=== PATIENT | female | born 2005 | race Caucasian/White ===

== ENCOUNTER → 2023-03-24 15:14 | Outpatient (CLI) | payer BC, SELFPAY ==
--- NOTE | ~2023-03-24 | US_ITS ---
EXAMINATION: US pelvic complete DATE: 03/24/2023 15:30 INDICATION: Irregular, heavy menstruation TECHNIQUE: Multiple transabdominal sonographic images of the pelvis were obtained. COMPARISON: None. FINDINGS: The uterus measures 8.9 x 3.8 x 5.2 cm. The endometrial complex measures 9 mm in thickness. The righ t ovary measures 4.5 x 1.9 x 2.6 cm. The left ovary measures 3.8 x 1.9 x 3.4 cm. Vascular flow identi fied in both ovaries on color Doppler. There is no free fluid in the pelvis. IMPRESSION: 1. Normal pelvic ultrasound. Reviewed, dictated and finalized at location A.
== END ==
PROVIDERS: PCP Nurse Practitioner; Visit Provider Nurse Practitioner
DX: N92.6 Irregular menstruation, unspecified (principal)
CPT/HCPCS: 76856

== ENCOUNTER 2025-05-02 08:11 | Emergency (ER) | payer BC, SELFPAY ==
--- OUTSIDE RECORDS SUMMARY | 2025-05-02 08:15 | XMS_ITS ---
Author Organization Unknown ENCOUNTERS Encounter Performer Location Date Diagnosis Diagnosis Status Outpatient [address] [place] [id number] *Note: Encounters from your own facility or health system may be excluded. Allergies, Adverse Reactions, Alerts Allergen Type Severity Identification Date Medications Name Date Quantity Days Supplied GPI Number
--- OUTSIDE RECORDS SUMMARY | 2025-05-02 08:15 | XMS_ITS | Continuity of Care Document ---
Author Organization [facility] Address [address] [place] [address] [address] [place] [address] Phone Care Team Providers Care Grocery Worker Name Role Phone Herrera OD, Nick Unavailable Unavailable Procedures Procedure Date Eye Exam & Treatment Refraction Eye Exam, New Patient Refraction Advance Directives Directive Yes / No Effective Date File Name No Information Encounters Encounter Description Practice Location Reason(s) For Visit Diagnoses Date Provider Providers Copied on Encounter [facility], [address] [place] [address] [address], [place], [place], [id number], tel:[phone] [facility] No Information 1-201 0 Herrera OD Nick. [address] [facility] , [address], [place], [place], [facility], [place]. tel:[phone] [facility], [address] [place] [address] [address], [place], [place], [id number], tel:[phone] [facility] No Information 1-200 9 Herrera OD Nick. [address] [facility] , [address], [place], [address], [place]. tel:[phone] Family History Family Member Type Diagnosis Age At Onset No Information Payers Payer name Insurance type Covered green party ID Authoriza tion(s) No Information Social History Type Description Quantity Date Captured Comments Sex Female Smoking Status No Information Chief Complaint And Reason For Visit No Information Reason For Referral Reason For Referral No Information History Of Present Illness Encounter Date Complaint History Of Prese nt Illness No Information Functional Status Date Functional Assessmen t No Information Instructions Date Instruction Additional Infor mation No Information Assessments Type Assessment Date No Information Patient Care Teams Name Effective Dates (start - stop) Status Members No Information
--- OUTSIDE RECORDS SUMMARY | 2025-05-02 08:17 | XMS_ITS | Continuity of Care Document ---
Author Organization [facility] Address [address] [place] [address] [address] [place] [address] Phone Care Team Providers Care Atmospheric Technician Name Role Phone Herrera OD, Nick Unavailable Unavailable Procedures Procedure Date Eye Exam & Treatment Refraction Eye Exam, New Patient Refraction Advance Directives Directive Yes / No Effective Date File Name No Information Encounters Encounter Description Practice Location Reason(s) For Visit Diagnoses Date Provider Providers Copied on Encounter [facility], [address] [place] [address] [address], [place], [place], [id number], tel:[phone] [facility] No Information 1-201 0 Herrera OD Nick. [address] [facility] , [address], [place], [place], [facility], [place]. tel:[phone] [facility], [address] [place] [address] [address], [place], [place], [id number], tel:[phone] [facility] No Information 1-200 9 Herrera OD Nick. [address] [facility] , [address], [place], [address], [place]. tel:[phone] Family History Family Member Type Diagnosis Age At Onset No Information Payers Payer name Insurance type Covered constitution party ID Authoriza tion(s) No Information Social [...]
[2025-05-02 08:23] VITALS: BP 136/67; PULSE 83; RESP 16; TEMP 36.6; O2SAT 99
--- NOTE | 2025-05-02 08:28 | ED.EAR ---
HPI - Ear Problem General Chief complaint: Ear Stated complaint: Left Ear Pain Time Seen by Provider: 05/02/25 08:29 Source: patient Mode of arrival: ambulatory Limitations: no limitations History of Present Illness HPI Narrative: 19 yo F presents with c/o pain to L ear for 2 days. Reports sinus congestion for 1 wk. Afebrile. All systems reviewed and negative except as noted above. Related Data Home Medications ?Medication ?Instructions ?Recorded ?Confirmed ?Last Taken ?Type levonorgestrel (Mirena) 1 device intrauterine ONCE 03/14/25 03/14/25 Unknown History Allergies Allergy/AdvReac Type Severity Reaction Status Date / Time No Known Allergies Allergy Verified 03/14/25 09:53 [facility] Past Medical History Medical History (Updated 05/02/25 @ 08:45 by Marcela Valentin NP) HSV-2 infection PCOS (polycystic ovarian syndrome) Constipation Acute hemorrhoid Surgical History Surgical History (Updated 03/14/25 @ 09:54 by Lawanda White CMA) H/O gynecological procedure Mirena IUD insertion Family History Family History (Updated 03/14/25 @ 09:54 by Lawanda White CMA) Mother Depression Grandparent Breast cancer Social History Social History (Updated 03/14/25 @ 09:55 by Lawanda White CMA) Smoking status: Never smoker Alcohol intake: current Substance use: never Substance use type: does not use Do You Feel Safe in your Home?: Yes Lack of Transportation: No Lack of Food: Never True Current Housing: I Have Housing Concerned About Future Housing: No Difficulty Paying Gas/Electric Bills: No Difficulty Paying for Meds: No Currently Unemployed: No Education: High School Diploma/GED Living arrangements: other Additional living arrangements comments: with finance Occupation/Education: occupation Gender identity (if verbalized by the patient): Female Sexual Orientation (if Verbalized by the Patient): Straight or Heterosexual Comments At time of signature, agree with nursing past medical, surgical, social and family history. There is no relevant family history pertinent to the presenting complaint. Exam Narrative: GENERAL: This is a well-nourished, well-developed patient, in no apparent distress. HEAD: normocephalic, atraumatic. EYES: PERRL. Sclera clear/white. Vision is grossly intact. EARS: External ears normal, auditory canals clear and without drainage, Erythema and bulging to left TM. Right TM normal. No perforation bilaterally. Hearing grossly intact. NOSE: External nose normal with Nasal congestion THROAT: Mucous membranes moist, posterior pharynx clear. NECK: Neck supple, non-tender without lymphadenopathy, masses or thyromegaly. CARDIOVASCULAR: Regular rate and rhythm without murmurs, gallops, or rubs. RESPIRATORY: Clear to auscultation. Breath sounds equal bilaterally. No wheezes, rales, or rhonchi. SKIN: warm, Dry, intact with no suspicious lesions or rash, good texture and turgor. NEURO: awake, alert, and oriented to person, place and time. There were no obvious focal neurologic abnormalities. EXTREMITIES: No joint tenderness, effusion, or edema noted. Course Course Level of Care: Express Care Visit Vital Signs Vital signs: Vital Signs Temperature 36.6 C 05/02/25 08:23 Pulse Rate 83 05/02/25 08:23 Respiratory Rate 16 05/02/25 08:23 Blood Pressure 136/67 05/02/25 08:23 Pulse Oximetry 99 05/02/25 08:23 Oxygen Delivery Room Air 05/02/25 08:23 Temperature 36.6 C 05/02/25 08:23 Pulse Rate 83 05/02/25 08:23 Respiratory Rate 16 05/02/25 08:23 Blood Pressure 136/67 05/02/25 08:23 Pulse Oximetry 99 05/02/25 08:23 Oxygen Delivery Room Air 05/02/25 08:23 reviewed Medical Decision Making MDM Narrative Medical decision making narrative: will treat left otitis media with amoxicillin. Patient is well-appearing, nontoxic. Agrees with plan of care. Vital Signs Vital Signs: Vital Signs Temperature 36.6 C 05/02/25 08:23 Pulse Rate 83 05/02/25 08:23 Respiratory Rate 16 05/02/25 08:23 Blood Pressure 136/67 05/02/25 08:23 Pulse Oximetry 99 05/02/25 08:23 Oxygen Delivery Room Air 05/02/25 08:23 Temperature 36.6 C 05/02/25 08:23 Pulse Rate 83 05/02/25 08:23 Respiratory Rate 16 05/02/25 08:23 Blood Pressure 136/67 05/02/25 08:23 Pulse Oximetry 99 05/02/25 08:23 Oxygen Delivery Room Air 05/02/25 08:23 Discharge Plan Discharge Clinical Impression: Acute left otitis media, Acute rhinosinusitis Patient Disposition: Home Condition: Stable Instructions: Antibiotic Form, Ear Infection (ED) Additional Instructions: take antibiotic as prescribed until gone. Take ibuprofen or Tylenol every 6-8 hours as needed for pain. Follow-up with your doctor if not improving. Patient Language: Kiswahili Prescriptions: New amoxicillin 875 mg tablet 875 mg PO Q12H 10 Days Qty: 20 0RF Claritin-D 12 Hour 5-120 mg tablet extended release 12 hr 1 tablet PO Q12H PRN (Reason: nasal congestion) Qty: 20 0RF No Action Mirena 21 mcg/24hr (up to 8 yrs) 52 mg intrauterine device 1 device intrauterine ONCE Rx Instructions: as a single dose Zepbound 12.5 mg/0.5 mL pen injector 12.5 mg subcut WEEKLY Qty: 2 0RF Follow-up/Referrals: Janay Sloan APRN [Primary Care Provider] - Time of Disposition: 08:36
== END 2025-05-02 08:43 | disposition home or self-care (01) ==
PROVIDERS: Emergency Provider Nurse Practitioner Family; PCP Nurse Practitioner Family
DX: H66.92 Otitis media, unspecified, left ear (principal); J01.90 Acute sinusitis, unspecified; E28.2 Polycystic ovarian syndrome
CPT/HCPCS: 99213; G0463